=== PATIENT | male | born 1990 | race Caucasian/White ===

== ENCOUNTER 2022-12-30 17:15 | Emergency (ER) | payer MEDICARE ==
[~2022-12-30] VITALS: Ht 175.3 cm; Wt 100.0 kg
[2022-12-30 18:00] VITALS: BP 95/51; PULSE 97; RESP 18; TEMP 97.7
[2022-12-30] MEDS ORDERED: GUAN2TAB19 PO (18:00)
[2022-12-30] MEDS ORDERED: TOPI25 PO (18:00)
[2022-12-30] MEDS ORDERED: QUET300T19 PO (18:00)
[2022-12-30] MEDS ORDERED: DIVA-112 PO (18:00)
[2022-12-30] MEDS ORDERED: QUET100T34 PO (18:00)
== END 2022-12-30 19:12 | disposition home or self-care (01) ==
LOC: EMS 17:17
DX: S00.83XA Contusion of other part of head, initial encounter (principal); F69 Unspecified disorder of adult personality and behavior; F84.0 Autistic disorder; G80.9 Cerebral palsy, unspecified; W22.8XXA Striking against or struck by other objects, initial encounter; Y93.89 Activity, other specified; Y92.89 Other specified places as the place of occurrence of the external cause; Y99.8 Other external cause status
CPT/HCPCS: 99285; Z7502

== ENCOUNTER 2023-02-08 19:27 | Emergency (ER) | payer MEDICARE ==
[~2023-02-08 19:27] MED LIST: DIVA-112 PO; GUAN2TAB19 PO; QUET100T34 PO; QUET300T19 PO; TOPI25 PO
== END 2023-02-08 20:31 | disposition home or self-care (01) ==
LOC: EMS 19:58
DX: F84.0 Autistic disorder (principal); F69 Unspecified disorder of adult personality and behavior
CPT/HCPCS: 99285; Z7502